=== PATIENT | female | born 1995 | race Caucasian/White ===

== ENCOUNTER → 2016-10-20 | Outpatient (CLI) | payer BC ==
[2016-10-20 12:44] LABS: PREG INTERNAL NEGATIVE QC NEG CLEAR BACKGROUND; PREG INTERNAL POSITIVE QC POS CONTROL LINE
[2016-10-25 09:14] LABS: CHLAMYDIA TRACH RNA*** NOT DETECTED (NOT DETECTED); GC (NEIS GONORRHOEAE)RNA** NOT DETECTED (NOT DETECTED)
== END | disposition home or self-care (01) ==
LOC: C.LAB1850 11:32
PROVIDERS: ATTEND Obstetrics & Gynecology
DX: N93.9 Abnormal uterine and vaginal bleeding, unspecified (principal)

== ENCOUNTER 2017-11-21 11:06 | Emergency (ER) | payer BC, OTHER ==
[~2017-11-21] VITALS: Ht 154.9 cm; Wt 68.0 kg
[2017-11-21 11:20] VITALS: TEMP 36.3; Ht 154.9 cm; Wt 68.0 kg
[2017-11-21] MEDS ORDERED: SODIUM CHLORIDE 0.9% 1000ML 2,000 ML IV STA (12:04)
[2017-11-21] MEDS ORDERED: BCPILLS PO (12:11)
[2017-11-21 12:16] LABS: BASO % 0.5 %; BASO ABS # 0.05 K/uL (0-0.2); EOS % 0.8 %; EOS ABS # 0.08 K/uL (0-0.5); HEMATOCRIT 45.9 % (37-47); HEMOGLOBIN 15.9 g/dL (12.0-16.0); IG# 0.02 K/uL (0.00-0.02); LYMPH % 33.1 %; LYMPH ABS # 3.25 K/uL (1.2-3.4); MEAN CELL VOLUME 88.1 fL (80-100); MEAN CORPUSCULAR HEMOGLOBIN 30.5 pg (25-34); MEAN CORPUSCULAR HGB CONC 34.6 g/dl (32-36); MEAN PLATELET VOLUME 10.8 fL (7.4-10.4); MONO % 8.4 %; MONO ABS # 0.82 K/uL (0.11-0.59); NEUT ABS # 5.59 K/uL (1.4-6.5); PLATELET COUNT 275 K/uL (130-400); RED CELL DISTRIBUTION WIDTH CV 13.1 % (11.5-14.5); RED CELL DISTRIBUTION WIDTH SD 42.2 fL (36.4-46.3); WHITE BLOOD COUNT 9.81 K/uL (4.8-10.8)
[2017-11-21 12:25] LABS: ALBUMIN 2.8 gm/dl (3.4-5.0); ALT/SGPT 23 U/L (12-78); AST/SGOT 25 U/L (15-37); BLOOD UREA NITROGEN 12 mg/dl (7-18); CALCIUM 7.8 mg/dl (8.5-10.1); CARBON DIOXIDE 27 mmol/L (21-32); CREATININE 0.95 mg/dl (0.60-1.20); GLUCOSE 142 mg/dl (70-99); LIPASE 157 U/L (73-393); POTASSIUM 3.6 mmol/L (3.5-5.1); SODIUM 138 mmol/L (136-145)
[2017-11-21 12:30] LABS: ALKALINE PHOSPHATASE 37 U/L (45-117); TOTAL PROTEIN 5.8 gm/dl (6.4-8.2)
--- NOTE | 2017-11-21 13:50 | DIAGNOSTIC IMAGING REPORT ---
CHEST ONE VIEW PORTABLE CLINICAL HISTORY: syncope COMPARISON STUDY: No previous studies for comparison. FINDINGS: The cardiac and mediastinal contours are normal. There is no evidence of focal pulmonary consolidation. There is no evidence of failure. No pleural effusions are visualized.[ IMPRESSION: No active disease in the chest. Electronically signed by: Kwadwo Patel M.D. 11/21/2017 1:48 PM Dictated Date/Time: 11/21/2017 1:48 PM
[2017-11-21 14:52] VITALS: BP 110/70; PULSE 79; O2SAT 99
--- NOTE | 2017-11-21 14:59 | EMERGENCY ROOM VISIT NOTE ---
History Report prepared by Mraek: Marino Shearer Under the Supervision of: Dr. Yaya Burr D.O. First contact with patient: 11:49 Chief Complaint: SYNCOPE Stated Complaint: PASSED OUT x2, SOMETIMES SHORT OF BREATH Nursing Triage Summary: pt to the ED with c/o passing out 2x and feels dizzy pt states that she donated plasma this am and ate but didn't drink pt lower abd cramps that has since went away pt BP was low x2 at triage and is pale History of Present Illness The patient is a 22 year old female who presents to the Emergency Room with complaints of a sudden syncopal episode occurring prior to arrival. The patient states that she donated plasma this morning and finished around 0945. She then went to class, and about five minutes into class she started to feel weird so she stepped outside and sat down with her head between her legs. She then got up to walk to the bathroom and started to lose her vision, and then she lost consciousness while walking and fell to the ground and hit her face. She states that she then got up and sat against the wall, and she passed out again. The patient is additionally complaining of a headache since this morning, face pain , and some abdominal cramping on the way to the ED. The patient states that she donates plasma often, and she states that she did not drink before or after donating the plasma. The patient denies any history of migraines. Patient denies swelling of calves, recent trips, history of immobilization or recent surgery, prior history of DVT, hemoptysis, history of malignancy, or control/estrogen use. Patient denies diabetes, hypertension, hyperlipidemia, CAD , history of sudden at a young age, and smoking. Pt denies fevers, chest pain, shortness of breath, nausea, vomiting, diarrhea, pain with urination, and melena. Source of History: patient Onset: prior to arrival Position: other (global) Quality: other (syncope) Timing: other (sudden) Associated Symptoms: + headache, + abdominal pain (cramping) Review of Systems See HPI for pertinent positives & negatives. A total of 10 systems reviewed and were otherwise negative. Past Medical & Surgical Medical Problems: (1) No chronic problems Family History Patient reports no known family medical history. Social History Marital Status: single Occupation Status: employed Current/Historical Medications Scheduled Control Pills ( Control Pills), 1 TAB PO DAILY Allergies Coded Allergies: No Known Allergies (Unverified , 11/21/17) Physical Exam Vital Signs Date Time Temp Pulse Resp B/P (MAP) Pulse Ox O2 Delivery O2 Flow Rate FiO2 11/21/17 14:52 79 16 110/70 99 11/21/17 14:07 73 18 109/78 99 Room Air 11/21/17 12:38 82 18 104/71 11/21/17 11:55 67 11/21/17 11:20 36.3 86 20 102/62 100 Room Air 11/21/17 11:12 36.3 86 20 59/54 100 Room Air Physical Exam GENERAL: Sitting up in bed, alert, well appearing, well nourished, no distress, non-toxic EYE EXAM: normal conjunctiva. PERRL and EOM's intact. OROPHARYNX: no exudate, no erythema, lips, buccal mucosa, and tongue normal and mucous membranes are moist NECK: supple, no nuchal rigidity, no adenopathy, non-tender LUNGS: Clear to auscultation. Normal chest wall mechanics HEART: no murmurs, S1 normal and S2 normal ABDOMEN: abdomen soft, non-tender, normo-active bowel sounds, no masses, no rebound or guarding. BACK: Back is symmetrical on inspection and there is no deformity, no midline tenderness, no CVA tenderness. SKIN: no rashes and no bruising UPPER EXTREMITIES: upper extremities are grossly normal. LOWER EXTREMITIES: No pitting edema. NEURO EXAM: Normal sensorium, cranial nerves II-XII intact, normal speech, no weakness of arms, no weakness of legs. No drift. Finger to nose intact. Gross sensation intact. Medical Decision & Procedures ER Provider Diagnostic Interpretation: Radiology results as stated below per my review and the radiologist's interpretation: CHEST ONE VIEW PORTABLE CLINICAL HISTORY: syncope COMPARISON STUDY: No previous studies for comparison. FINDINGS: The cardiac and mediastinal contours are normal. There is no evidence of focal pulmonary consolidation. There is no evidence of failure. No pleural effusions are visualized.[ IMPRESSION: No active disease in the chest. Electronically signed by: Kwadwo Patel M.D. 11/21/2017 1:48 PM Dictated Date/Time: 11/21/2017 1:48 PM Laboratory Results 11/21/17 11:22 Red Blood Count 5.21, Mean Corpuscular Volume 88.1, Mean Corpuscular Hemoglobin 30.5, Mean Corpuscular Hemoglobin Concent 34.6, Mean Platelet Volume 10.8, Neutrophils (%) (Auto) 57.0, Lymphocytes (%) (Auto) 33.1, Monocytes (%) (Auto) 8.4, Eosinophils (%) (Auto) 0.8, Basophils (%) (Auto) 0.5, Neutrophils # (Auto) 5.59, Lymphocytes # (Auto) 3.25, Monocytes # (Auto) 0.82, Eosinophils # (Auto) 0.08, Basophils # (Auto) 0.05 11/21/17 11:22 Test 11/21/17 11:22 White Blood Count 9.81 K/uL (4.8-10.8) Red Blood Count 5.21 M/uL (4.2-5.4) Hemoglobin 15.9 g/dL (12.0-16.0) Hematocrit 45.9 % (37-47) Mean Corpuscular Volume 88.1 fL (80-100) Mean Corpuscular Hemoglobin 30.5 pg (25-34) Mean Corpuscular Hemoglobin Concent 34.6 g/dl (32-36) Platelet Count 275 K/uL (130-400) Mean Platelet Volume 10.8 fL (7.4-10.4) Neutrophils (%) (Auto) 57.0 % Lymphocytes (%) (Auto) 33.1 % Monocytes (%) (Auto) 8.4 % Eosinophils (%) (Auto) 0.8 % Basophils (%) (Auto) 0.5 % Neutrophils # (Auto) 5.59 K/uL (1.4-6.5) Lymphocytes # (Auto) 3.25 K/uL (1.2-3.4) Monocytes # (Auto) 0.82 K/uL (0.11-0.59) Eosinophils # (Auto) 0.08 K/uL (0-0.5) Basophils # (Auto) 0.05 K/uL (0-0.2) RDW Standard Deviation 42.2 fL (36.4-46.3) RDW Coefficient of Variation 13.1 % (11.5-14.5) Immature Granulocyte % (Auto) 0.2 % Immature Granulocyte # (Auto) 0.02 K/uL (0.00-0.02) D-Dimer 190 ug/L FEU (0-500) Anion Gap 6.0 mmol/L (3-11) Est Creatinine Clear Calc Drug Dose 80.5 ml/min Estimated GFR () 97.2 Estimated GFR (Non- 83.8 BUN/Creatinine Ratio 12.6 (10-20) Calcium Level 7.8 mg/dl (8.5-10.1) Total Bilirubin 0.6 mg/dl (0.2-1) Direct Bilirubin 0.1 mg/dl (0-0.2) Aspartate Amino Transf (AST/SGOT) 25 U/L (15-37) Alanine Aminotransferase (ALT/SGPT) 23 U/L (12-78) Alkaline Phosphatase 37 U/L (45-117) Troponin I < 0.015 ng/ml (0-0.045) Total Protein 5.8 gm/dl (6.4-8.2) Albumin 2.8 gm/dl (3.4-5.0) Lipase 157 U/L (73-393) Laboratory results per my review. Medications Administered Medications (Trade) Dose Ordered Sig/Robles Route Start Time Stop Time Status Last Admin Dose Admin Sodium Chloride 2,000 ml @ 999 mls/hr Q2H1M STAT IV 11/21/17 12:04 11/21/17 14:04 DC 11/21/17 12:04 999 MLS/HR ECG Per My Interpretation Indication: syncope Rate (beats per minute): 65 Rhythm: sinus rhythm Findings: no ectopy, other (Normal axis and normal intervals) ED Course ED COURSE: Vital signs were reviewed and showed normal vitals The patients medical record was reviewed The above diagnostic studies were performed and reviewed. ED treatments and interventions as stated above. 1149: The patient was evaluated in room C11. A complete history and physical examination was performed. 1204: Sodium Chloride 2000 ml @ 999 mls/hr IV 1332: I reevaluated the patient, and she was declining a chest x-ray and CT scan , though eventually she was agreeable to the x-ray. 1415: Upon reevaluation, the patient is doing okay.I discussed my findings with the patient and she understands and agrees with the treatment plan. Based on the patients age, coexisting illnesses, exam and lab findings the decision to treat as an outpatient was made. The patient remained stable while under my care. The patient appeared well at the time of discharge. Medical Decision Differential diagnosis includes etiologies such as vasovagal event, infection, hypoglycemia, electrolyte abnormalities, cardiac sources, intracerebral event, toxicologic, neurologic, as well as others were entertained. Patient is a 22-year-old female who presents to the ER for 2 syncopal episodes. She gave plasma today at 945. She went to class and there she became lightheaded and nauseous. She notes her vision started to see spots that she got up and left class. At this time she lost her vision and lowered herself to the floor. She then passed out. When she woke up she try to get back up and passed out again. She has no cardiac risk factors and is a low risk for PEs. D -dimer negative. Troponin was negative. EKG unremarkable. CBC along with BMP , LFTs, bilirubin and lipase was normal. Troponin was negative as stated above. PSG was slightly elevated but she stricken or anxious. She initially declined her chest x-ray and CT. She was eventually agreeable to obtaining chest x-ray which was negative as well. Patient was updated at bedside. She was given 2 L normal saline. She was discharged follow-up with PCP as an outpatient. I do favor this was likely secondary to dehydration. Discussed with Pt concerning signs and symptoms to watch out for. Pt was instructed to follow up with their PCP and discussed with the patient their option to return to the ED at anytime for persistent or worsening symptoms. The appropriate anticipatory guidance and out-patient management, including indications for return to the emergency department, were explained at length to the patient and understood. Medication Reconcilliation Current Medication List: was personally reviewed by me Blood Pressure Screening Patient's blood pressure: Normal blood pressure Impression Primary Impression: Syncope Scribe Attestation The scribe's documentation has been prepared under my direction and personally reviewed by me in its entirety. I confirm that the note above accurately reflects all work, treatment, procedures, and medical decision making performed by me. Departure Information Dispostion Home / Self-Care Referrals Arnold Landin M.D. (PCP) Forms HOME CARE DOCUMENTATION FORM, IMPORTANT VISIT INFORMATION Patient Instructions ED Syncope Vasovagal, My [facility], Syncope Causes Additional Instructions Please follow up with your primary care doctor with in the next 24 hours. Any worsening of your symptoms, please return to the ED immediately. This includes any fevers greater than 100.4, worsening pain, chest pain, shortness breath, persistent nausea, vomiting, unable to eat or drink, or any other concerning signs or symptoms from your standpoint. Please try to remain hydrated the remainder of the day. Please do not donate plasma the remainder of the week. Problem Qualifiers Primary Impression: Syncope Syncope type: unspecified Qualified Codes: R55 - Syncope and collapse
== END 2017-11-21 14:51 | disposition home or self-care (01) ==
LOC: C.EDB 11:09 → C.EDC 14:51
DX: R55 Syncope and collapse (principal)

== ENCOUNTER → 2017-11-22 | Outpatient (CLI) | payer OTHER ==
[~2017-11-22] MED LIST: BCPILLS PO
== END | disposition home or self-care (01) ==
LOC: C.PAPS 15:34
PROVIDERS: ATTEND Physician Assistant
DX: Z01.411 Encounter for gynecological examination (general) (routine) with abnormal findings (principal); R87.610 Atypical squamous cells of undetermined significance on cytologic smear of cervix (ASC-US)